=== PATIENT | female | born 1980 | race Caucasian/White ===

== ENCOUNTER 2016-05-16 18:25 | Emergency (ER) | payer MEDICAID ==
[~2016-05-16] VITALS: Ht 162.6 cm; Wt 52.0 kg
[~2016-05-16 18:25] MED LIST: IBUP-1542 PO; TYL500 PO
[2016-05-16 18:40] VITALS: Ht 162.6 cm; Wt 52.0 kg
[2016-05-16] MEDS ORDERED: HYDROCODONE/APAP (5/325) TAB PO ONE (20:30)
[2016-05-16] MEDS ORDERED: LIDOCAINE 1% (MDV) 20 ML INJ SC ONE (20:30)
--- NOTE | 2016-05-16 21:09 | ERD ---
ER Documentation Chief Complaint Date/Time DATE: 05/16/16 TIME: 21:03 Chief Complaint abscess right lower abdomen accu checheck 382 HPI This is a 35-year-old female who presents the emergency department today for an abscess on her right lower abdomen. States the abscess has been there for 2 days. Patient's states she does have a history of diabetes for which she does not take medication as she does not have a primary care doctor. Denies any fevers or chills. ROS All systems reviewed and are negative except as per history of present illness. Medications Home Meds Active Scripts Sulfamethoxazole-Trimethoprim* (Bactrim* DS) 800-160 Mg Tab, 1 TAB PO BID for 7 Days, TAB Prov:CARLOTA HAMILTON PA-C 05/16/16 Cephalexin* (Keflex*) 500 Mg Capsule, 500 MG PO QID for 7 Days, CAP Prov:CARLOTA HAMILTON PA-C 05/16/16 Ibuprofen* (Motrin*) 600 Mg Tab, 600 MG PO Q6, #30 TAB Prov:CARLOTA HAMILTON PA-C 05/16/16 Hydrocodone/Acetaminophen ([place] 5-325 Tablet) 1 Each Tablet, 1 TAB PO Q6H Y for PAIN, #15 TAB Prov:CARLOTA HAMILTON PA-C 05/16/16 Ibuprofen* (Ibuprofen*) 600 Mg Tablet, 600 MG PO Q6, #30 TAB Prov:CAROL ANN ALMENDAREZ PA-C 05/24/15 Acetaminophen* (Tylenol*) 500 Mg Tab, 500 MG PO Q4H Y for MILD PAIN LEVEL 1-3, # 14 TAB Prov:IBAN FONTAINE MD 05/24/15 Allergies Allergies: Coded Allergies: No Known Allergies (Verified Allergy, Mild, 08/11/13) PMhx/Soc Medical and Surgical Hx: pt denies Medical Hx, pt denies Surgical Hx History of Surgery: Yes ( x 4) Anesthesia Reaction: No Hx Neurological Disorder: No Hx Respiratory Disorders: No Hx Cardiac Disorders: No Hx Psychiatric Problems: No Hx Miscellaneous Medical Probl: Yes (Diabetes) Hx Alcohol Use: No Hx Substance Use: No Hx Tobacco Use: No Smoking Status: Never smoker Physical Exam Vitals Vital Signs Date Time Temp Pulse Resp B/P Pulse Ox O2 Delivery O2 Flow Rate FiO2 1/11/17 18:40 97.4 89 20 111/64 98 Physical Exam Const: No acute distress Head: Atraumatic Eyes: Normal Conjunctiva ENT: Normal External Ears, Nose and Mouth. Neck: Full range of motion..~ No meningismus. Resp: Clear to auscultation bilaterally Cardio: Regular rate and rhythm, no murmurs Abd: Soft, non tender, non distended. Normal bowel sounds Skin: 2 cm abscess right side of abdomen cluster headache. Localized erythema with evidence of mild drainage of pus. Full active range of motion of hip. Back: No midline or flank tenderness Ext: No cyanosis, or edema Neur: Awake and alert Psych: Normal Mood and Affect Results 24 hrs Current Medications Medications (Trade) Dose Ordered Sig/Osvaldo Route PRN Reason Start Time Stop Time Status Last Admin Dose Admin Lidocaine (Xylocaine 1% (Mdv) 20 ml) 20 ml ONCE ONCE SC 05/16/16 20:30 05/16/16 20:31 DC 05/16/16 20:33 Acetaminophen/ Hydrocodone Bitart ([place] (5/325)) 1 tab ONCE ONCE PO 05/16/16 20:30 05/16/16 20:31 DC 05/16/16 20:30 Procedures/MDM This 35-year-old female who presents to the emergency department today for an abscess on the right side of her abdomen caused her hip. Patient stated that was very painful. She has not taken any medication for the pain. On physical exam patient had a possibly to severe abscess with evidence of some purulent drainage or any draining. I did complain to the patient that it would be best to open up the abscess at this time. I explained the risks and benefits and patient agree to proceed. Area was prepped in the usual sterile fashion. Patient was given Austin prior to procedure. Patient tolerated the procedure well and there were no complications. Abscess Incision and Drainage with irrigation by me: Location: right side abdomen Anesthesia: [Local 1% Lidocaine] 2.5 mL Technique: [11 blade scalpel used to make a 1cm incision in the abscess. Irrigated. Disrupted loculations w/ instrumentation] Packin cm iodoform Complications: [Neurovascularly intact post procedure] Patient's skin symptoms have stabilized while they have been evaluated in the department and are appropriate for outpatient care and work up. Exam and w/u not consistent w/ sepsis, deep space infection, or foreign body. 48 hour wound check. Scar minimization instructions given. Patient will be given a prescription for [place], Motrin, Keflex and Bactrim. Patient had an Accu-Chek of 382 at intake. Patient denied any headache, dizziness, abdominal pain, nausea or vomiting. I do not feel the patient requires insulin or diabetes treatment at this time here in the acute setting. I have explained to the patient that she needs to follow up with primary care physician. She was given a list of resources. At this time the patient is stable for discharge and outpatient management. Patient should follow up with their PCP in the next 1-2 days. They may return to the emergency department sooner for any persistent or worsening of symptoms. Patient understood and agreed with the plan. I discussed the patient with Dr. Patel and she is in agreement with the plan. Departure Diagnosis: Primary Impression: Abscess Condition: Fair CARLOTA HAMILTON PA-C May 16, 2016 21:08
[2016-05-16] MEDS ORDERED: CEPH-443 PO (21:10)
[2016-05-16] MEDS ORDERED: BACTDS PO (21:10)
[2016-05-16] MEDS ORDERED: IBUP-1542 PO (21:10)
[2016-05-16] MEDS ORDERED: HYDR-906 PO (21:10)
[2016-05-16 21:24] VITALS: BP 113/70; PULSE 82; RESP 18; TEMP 98.3
== END 2016-05-16 21:25 | disposition home or self-care (01) ==
LOC: FTE 18:25
DX: L02.211 Cutaneous abscess of abdominal wall (principal); E11.9 Type 2 diabetes mellitus without complications
CPT/HCPCS: 10061; 82962; Z7502; Z7610

== ENCOUNTER 2016-05-18 18:30 | Emergency (ER) | payer MEDICAID ==
[~2016-05-18] VITALS: Ht 152.4 cm; Wt 52.5 kg
[~2016-05-18 18:30] MED LIST changes: +BACTDS PO; +CEPH-443 PO; +HYDR-906 PO
[2016-05-18 18:36] VITALS: Ht 152.4 cm; Wt 52.5 kg
[2016-05-18] MEDS ORDERED: DOXY100T20 PO (19:19)
[2016-05-18] MEDS ORDERED: LACT1CAP17 PO (19:20)
[2016-05-18] MEDS ORDERED: FLUC150T41 PO (19:20)
[2016-05-18] MEDS ORDERED: DOXYCYCLINE 100 MG TAB PO ONE (19:30)
--- NOTE | 2016-05-18 19:35 | ERD ---
ER Documentation Chief Complaint Date/Time DATE: 05/18/16 TIME: 19:21 Chief Complaint abscess on rlq on the abd, severe pain, afebrile HPI 35-year-old woman with a recent right inguinal abscess packed yesterday presents with wound reevaluation. She does have a history of diabetes mellitus although she states she is does not inject insulin. She suspects skin irritation to the right inguinal area occurred because of a tight fitting belt although she states upon further questioning she has had about 1 year of intermittent malodorous vaginal discharge. She states last sexual intercourse was 2 months ago with her , unprotected. She denies weight loss, no fevers or chills, no vomiting. She was prescribed cephalexin and trimethoprim/ sulfamethoxazole yesterday and has been using those antibiotics as prescribed. ROS All systems reviewed and are negative except as per history of present illness. Medications Home Meds Active Scripts Fluconazole* (Fluconazole*) 150 Mg Tablet, 150 MG PO ONCE, #1 TAB Prov:MEGAN TERRY MD 05/18/16 Lactobac Cmb #3/Fos/Pantethine (PROBIOTIC & ACIDOPHILUS CAP) 1 Each Capsule, 1 EACH PO DAILY, #30 CAP Prov:MEGAN TERRY MD 05/18/16 Doxycycline Hyclate* (Doxycycline Hyclate*) 100 Mg Tablet.dr, 100 MG PO BID for 14 Days, TAB Prov:MEGAN TERRY MD 05/18/16 Sulfamethoxazole-Trimethoprim* (Bactrim* DS) 800-160 Mg Tab, 1 TAB PO BID for 7 Days, TAB Prov:CARLOTA HAMILTON PA-C 05/16/16 Cephalexin* (Keflex*) 500 Mg Capsule, 500 MG PO QID for 7 Days, CAP Prov:CARLOTA HAMILTON PA-C 05/16/16 Ibuprofen* (Motrin*) 600 Mg Tab, 600 MG PO Q6, #30 TAB Prov:CARLOTA HAMILTON PA-C 05/16/16 Hydrocodone/Acetaminophen ([place] 5-325 Tablet) 1 Each Tablet, 1 TAB PO Q6H Y for PAIN, #15 TAB Prov:CARLOTA HAMILTON PA-C 05/16/16 Ibuprofen* (Ibuprofen*) 600 Mg Tablet, 600 MG PO Q6, #30 TAB Prov:CAROL ANN ALMENDAREZ PA-C 05/24/15 Acetaminophen* (Tylenol*) 500 Mg Tab, 500 MG PO Q4H Y for MILD PAIN LEVEL 1-3, # 14 TAB Prov:IBAN FONTAINE MD 05/24/15 Allergies Allergies: Coded Allergies: No Known Allergies (Verified Allergy, Mild, 08/11/13) PMhx/Soc Diabetes mellitus History of Surgery: Yes ( x 4) Anesthesia Reaction: No Hx Neurological Disorder: No Hx Respiratory Disorders: No Hx Cardiac Disorders: No Hx Psychiatric Problems: No Hx Miscellaneous Medical Probl: Yes (Diabetes) Hx Alcohol Use: No Hx Substance Use: No Hx Tobacco Use: No FmHx Family History: No diabetes Physical Exam Vitals Vital Signs Date Time Temp Pulse Resp B/P Pulse Ox O2 Delivery O2 Flow Rate FiO2 05/18/16 18:36 98.4 80 20 108/69 99 Physical Exam GENERAL: Well-developed, well-nourished, well-hydrated, in no apparent distress , looks nontoxic in appearance HEENT: Moist mucous membranes, pink conjunctiva, no cervical spine tenderness or step-off deformities, no goiter, no jaundice or icterus, extraocular movements intact without pain. No submandibular induration, and no pharyngeal erythema NEURO: Alert and oriented 3, cranial nerves II through XII intact bilaterally, pupils equal round reactive to light, no focal deficits or facial asymmetry, sensation intact distally Strength 5/5 in upper and lower extremities bilaterally CARDIAC: Regular rate and rhythm, no murmurs rubs or gallops LUNGS: Clear bilaterally no wheezing crackles or stridor ABDOMEN: Soft nontender, no guarding, no rigidity, no rebound, no psoas sign no obturator sign. Normoactive bowel sounds SKIN: Warm and dry to touch, 1 cm circular draining abscess to the right inguinal area without skin induration or erythema. No target lesions. EXTREMITIES: No clubbing cyanosis or edema, calves are bilaterally symmetrical, no Homans sign, no popliteal cord sign. Distal pulses equal and bilateral PSYCH: Normal affect without agitation or irritability Results 24 hrs Current Medications Medications (Trade) Dose Ordered Sig/Osvaldo Route PRN Reason Start Time Stop Time Status Last Admin Dose Admin Doxycycline Hyclate (Vibramycin) 100 mg ONCE ONCE PO 05/18/16 19:30 05/18/16 19:31 Procedures/MDM Packing from the inguinal abscess was removed. Site was clean and dry without signs of overlying cellulitis. Abdominal examination was benign. Infections to consider in the setting of inguinal abscesses include but are not limited to lymphogranuloma venereum, syphilis, pelvic inflammatory disease, and tubo-ovarian abscess. I administered a dose of doxycycline here in the ER and prescribed 2 weeks of doxycycline twice daily. My other strong recommendation was she follow-up with gynecology for thorough pelvic examination and cervical swab and testing for sexually transmitted infections. This can be performed as an outpatient as she has had vaginal discharge for about a year. Bacterial vaginitis may also cause this presentation and 2 weeks of doxycycline should treat this adequately. Differential diagnoses considered, included but not limited to tubo-ovarian abscess, chlamydia infection, syphilis, abdominal aortic aneurysm, sepsis, stroke, meningitis, encephalitis, pneumonia, appendicitis, cholecystitis, bowel obstruction, pyelonephritis, nephrolithiasis, cystitis, as well as metabolic, hematologic, and electrolyte abnormalities. As well as abscess, cellulitis, fractures, and dislocations. Patient feels much better at this time, and vital signs are normal, symptoms have improved. I did give strict instructions to return to the ED if symptoms continue or worsen, patient will otherwise follow-up with primary care physician. Patient understood instructions and agreed to plan. Departure Diagnosis: Primary Impression: Bacterial vaginitis Additional Impressions: Inguinal abscess Encounter for wound re-check Condition: Good Patient Instructions: What Are Sexually Transmitted Diseases (STDs)?, Vaginitis , Bacterial MEGAN TERRY MD May 18, 2016 19:34
[2016-05-18 19:54] VITALS: BP 99/65; PULSE 73; RESP 20; TEMP 97.8
== END 2016-05-18 19:54 | disposition home or self-care (01) ==
LOC: FTE 18:30
DX: N76.0 Acute vaginitis (principal); L02.214 Cutaneous abscess of groin; E11.9 Type 2 diabetes mellitus without complications
CPT/HCPCS: Z7502; Z7610; 99284

== ENCOUNTER 2017-03-10 17:56 | Emergency (ER) | payer MEDICAID ==
[~2017-03-10] VITALS: Wt 50.3 kg
[~2017-03-10 17:56] MED LIST changes: +DOXY100T20 PO; +FLUC150T41 PO; +LACT1CAP17 PO
--- NOTE | 2017-03-10 19:38 | RADRPT ---
PROCEDURE: XR Chest. CLINICAL INDICATION: Abdominal pain. TECHNIQUE: Single frontal view. COMPARISON: None. FINDINGS: The lungs are clear. The heart size is normal. There is no pleural effusion. There is no pneumothorax. IMPRESSION: 1. Normal chest radiograph. RPTAT: QQ .Matteo Mckeon MD, Date Time Electronically viewed and signed by .Matteo Mckeon MD, on 03/10/2017 19:38 .R/
[2017-03-10] MEDS ORDERED: CEPH-443 PO (20:09)
[2017-03-10] MEDS ORDERED: METF500T4 PO (20:09)
--- NOTE | 2017-03-10 20:14 | ERD ---
ER Documentation Chief Complaint Chief Complaint LEFT LOWER QUAD HPI Patient is a 36-year-old female who is diabetic complaining of chest pain for 3 days as well as left lower abdominal pain. She also has increased urinary frequency and dysuria but denies any hematuria. She states she is diabetic but does not take any medications because she does not have a primary care doctor. She has no cardiac past medical history. No fever. No nausea or vomiting or diarrhea. ROS All systems reviewed and are negative except as per history of present illness. Medications Home Meds Active Scripts Metformin* (Glucophage*) 500 Mg Tab, 500 MG PO DAILY, #30 TAB Prov:OLLIE DUNNE PA-C 03/10/17 Cephalexin* (Keflex*) 500 Mg Capsule, 500 MG PO BID for 5 Days, CAP Prov:OLLIE DUNNE PA-C 03/10/17 Fluconazole* (Fluconazole*) 150 Mg Tablet, 150 MG PO ONCE, #1 TAB Prov:MEGAN TERRY MD 05/18/16 Lactobac Cmb #3/Fos/Pantethine (PROBIOTIC & ACIDOPHILUS CAP) 1 Each Capsule, 1 EACH PO DAILY, #30 CAP Prov:MEGAN TERRY MD 05/18/16 Doxycycline Hyclate* (Doxycycline Hyclate*) 100 Mg Tablet.dr, 100 MG PO BID for 14 Days, TAB Prov:MEGAN TERRY MD 05/18/16 Sulfamethoxazole-Trimethoprim* (Bactrim* DS) 800-160 Mg Tab, 1 TAB PO BID for 7 Days, TAB Prov:CARLOTA HAMILTON PA-C 05/16/16 Cephalexin* (Keflex*) 500 Mg Capsule, 500 MG PO QID for 7 Days, CAP Prov:CARLOTA HAMILTON PA-C 05/16/16 Ibuprofen* (Motrin*) 600 Mg Tab, 600 MG PO Q6, #30 TAB Prov:CARLOTA HAMILTON PA-C 05/16/16 Hydrocodone/Acetaminophen ([place] 5-325 Tablet) 1 Each Tablet, 1 TAB PO Q6H Y for PAIN, #15 TAB Prov:CARLOTA HAMILTON PA-C 05/16/16 Ibuprofen* (Ibuprofen*) 600 Mg Tablet, 600 MG PO Q6, #30 TAB Prov:CAROL ANN ALMENDAREZ PA-C 05/24/15 Acetaminophen* (Tylenol*) 500 Mg Tab, 500 MG PO Q4H Y for MILD PAIN LEVEL 1-3, # 14 TAB Prov:IBAN FONTAINE MD 05/24/15 Allergies Allergies: Coded Allergies: No Known Allergies (Verified Allergy, Mild, 08/11/13) PMhx/Soc Medical and Surgical Hx: pt denies Medical Hx History of Surgery: Yes ( x 4) Anesthesia Reaction: No Hx Neurological Disorder: No Hx Respiratory Disorders: No Hx Cardiac Disorders: No Hx Psychiatric Problems: No Hx Miscellaneous Medical Probl: Yes (Diabetes) Hx Alcohol Use: No Hx Substance Use: No Hx Tobacco Use: No Smoking Status: Never smoker FmHx Family History: diabetes Physical Exam Vitals Vital Signs Date Time Temp Pulse Resp B/P Pulse Ox O2 Delivery O2 Flow Rate FiO2 03/10/17 18:06 98.7 87 18 134/74 99 Physical Exam INITIAL VITAL SIGNS: Reviewed by me GENERAL: Awake, alert and oriented x 4, well appearing, nontoxic, speaking in full sentences. No acute distress HEAD: Atraumatic NECK: Supple. No masses. Full range of motion. No meningismus. No midline tenderness. RESPIRATORY: Clear to auscultation bilaterally. Symmetric chest wall rise. No wheezing or rales. No accessory muscle use. CV: Regular rate and rhythm. No murmurs, rubs, or gallops. ABDOMEN: Soft, non-distended. Nontender. Negative [place]. Negative McBurneys point tenderness. No CVA tenderness bilaterally. No guarding. No rebound. : Deffered. Result Diagram: 03/10/17190003/10/171900 Results 24 hrs Laboratory Tests Test 03/10/17 19:01 03/10/17 19:24 White Blood Count 12.910^3/ul Red Blood Count 4.3510^6/ul Hemoglobin 12.2g/dl Hematocrit 35.2% Mean Corpuscular Volume 80.9fl Mean Corpuscular Hemoglobin 28.0pg Mean Corpuscular Hemoglobin Concent 34.7g/dl Red Cell Distribution Width 12.6% Platelet Count 30656^3/UL Mean Platelet Volume 11.1fl Neutrophils % 74.3% Lymphocytes % 18.1% Monocytes % 5.4% Eosinophils % 1.2% Basophils % 0.5% Nucleated Red Blood Cells % 0.0/100WBC Neutrophils # 9.610^3/ul Lymphocytes # 2.310^3/ul Monocytes # 0.710^3/ul Eosinophils # 0.210^3/ul Basophils # 0.110^3/ul Nucleated Red Blood Cells # 0.010^3/ul Sodium Level 137mmol/L Potassium Level 4.0mmol/L Chloride Level 101mmol/L Carbon Dioxide Level 25mmol/L Anion Gap 15 Blood Urea Nitrogen 12mg/dl Creatinine 0.51mg/dl Glucose Level 342mg/dl Calcium Level 9.1mg/dl Total Bilirubin 0.8mg/dl Direct Bilirubin 0.00mg/dl Indirect Bilirubin 0.8mg/dl Aspartate Amino Transf (AST/SGOT) 18IU/L Alanine Aminotransferase (ALT/SGPT) 27IU/L Alkaline Phosphatase 209IU/L Troponin I < 0.012ng/ml Total Protein 7.8g/dl Albumin 3.8g/dl Globulin 4.00g/dl Albumin/Globulin Ratio 0.95 Lipase 73U/L Urine Color YELLOW Urine Clarity CLOUDY Urine pH 6.0 Urine Specific [place] 1.023 Urine Ketones TRACEmg/dL Urine Nitrite POSITIVEmg/dL Urine Bilirubin NEGATIVEmg/dL Urine Urobilinogen NEGATIVEmg/dL Urine Leukocyte Esterase 2+Tawanna/ul Urine Microscopic RBC 6/HPF Urine Microscopic WBC 50/HPF Urine Squamous Epithelial Cells FEW/HPF Urine Bacteria FEW/HPF Urine Mucus FEW/HPF Urine Hemoglobin 1+mg/dL Urine Glucose 3+mg/dL Urine Total Protein NEGATIVEmg/dl Procedures/MDM 36-year-old female presents complaining of chest pain as well as abdominal pain. The differential diagnosis includes but is not limited to acute coronary syndrome acute myocardial infarction, pericarditis, pulmonary embolism, aortic dissection, pneumonia, pleural effusion, pneumothorax, GERD, chest wall pain, appendicitis, cholelithiasis, cholecystitis, pancreatitis, hepatitis, gastritis , peptic ulcer disease, bowel obstruction, diverticulitis, renal disease including stones, torsion, AAA, pyelonephritis, and others. Patients is alert , oriented, well appearing, and in no distress with normal vital signs. There is no fever, tachycardia, or tachypnea. Blood work reveals elevated blood sugar of 342 but there is no evidence of DKA. Chest x-ray negative. Urine is positive for urinary tract infection. She was given prescription for Keflex and I also started her on metformin and I gave her a list of low-cost clinics in the area and told her she is to follow-up for further management of her diabetes and explained to her is her responsibility to do this. Patient counseled regarding my diagnostic impression and care plan. Prior to discharge all questions answered. Pt agrees with treatment plan and understands strict return precautions. Pt is instructed to follow up with primary care provider within 24-48 hours. Precautionary instructions provided including instructions to return to the ER if not improving or for any worsening or changing symptoms or concerns. Departure Diagnosis: Primary Impression: Cystitis Additional Impression: Hyperglycemia Condition: Stable Patient Instructions: Hyperglycemia (High Blood Sugar), Cystitis [facility] Usted se lee hecho un examen mdico de control que le indica que no est en jacquie condicin que requiera tratamiento urgente en el Departamento de Emergencia. Un estudio ms profundo y el tratamiento de kilpatrick condicin pueden esperar sin ningn riesgo hasta que usted sea atendida/o en el consultorio de kilpatrick mdico o jacquie cl raghavendra. Es responsabilidad suya arreglar jacquie jong para el seguimiento del nicolle. MANEJO DE CONDICIONES NO URGENTES EN EL FUTURO 1) Si usted tiene un mdico de atencin primaria: Usted debera llamar a kilpatrick mdico de atencin primaria antes de venir al departamento de emergencia. Despus de las horas de consultorio, kilpatrick doctor o kilpatrick asociado/a est disponible por telfono. El mdico o enfermero de gissel en el servicio telefnico puede asesorarle por jabier medio para atender el problema, o nicolle contrario se puede programar jacquie jong. 2) Si usted no tiene un mdico de atencin primaria: Llame al mdico o clnica de referencia que aparece abajo ava las horas de consultorio para hacer jacquie jong para que le vean. CLINICAS: [facility] [phone] [facility] [phone] [facility] [phone] [place] [id number] [phone] [place] [address] [phone] [facility] [phone] [address] Additional Instructions: Llame al doctor MAANA y johann jacquie JONG PARA DENTRO DE 1-2 ELDRIDGE.Dgale a la secretaria que nosotros le instruimos hacer esta jong.Avise o llame si kilpatrick condicin se empeora antes de la jong. Regresa aqui si peor o no mejor. OLLIE DUNNE PA-C Mar 10, 2017 20:14
--- NOTE | 2017-03-10 20:14 | ERD ---
ER Documentation Chief Complaint Chief Complaint LEFT LOWER QUAD HPI Patient is a 36-year-old female who is diabetic complaining of chest pain for 3 days as well as left lower abdominal pain. She also has increased urinary frequency and dysuria but denies any hematuria. She states she is diabetic but does not take any medications because she does not have a primary care doctor. She has no cardiac past medical history. No fever. No nausea or vomiting or diarrhea. ROS All systems reviewed and are negative except as per history of present illness. Medications Home Meds Active Scripts Metformin* (Glucophage*) 500 Mg Tab, 500 MG PO DAILY, #30 TAB Prov:OLLIE DUNNE PA-C 03/10/17 Cephalexin* (Keflex*) 500 Mg Capsule, 500 MG PO BID for 5 Days, CAP Prov:OLLIE DUNNE PA-C 03/10/17 Fluconazole* (Fluconazole*) 150 Mg Tablet, 150 MG PO ONCE, #1 TAB Prov:MEGAN TERRY MD 05/18/16 Lactobac Cmb #3/Fos/Pantethine (PROBIOTIC & ACIDOPHILUS CAP) 1 Each Capsule, 1 EACH PO DAILY, #30 CAP Prov:MEGAN TERRY MD 05/18/16 Doxycycline Hyclate* (Doxycycline Hyclate*) 100 Mg Tablet.dr, 100 MG PO BID for 14 Days, TAB Prov:MEGAN TERRY MD 05/18/16 Sulfamethoxazole-Trimethoprim* (Bactrim* DS) 800-160 Mg Tab, 1 TAB PO BID for 7 Days, TAB Prov:CARLOTA HAMILTON PA-C 05/16/16 Cephalexin* (Keflex*) 500 Mg Capsule, 500 MG PO QID for 7 Days, CAP Prov:CARLOTA HAMILTON PA-C 05/16/16 Ibuprofen* (Motrin*) 600 Mg Tab, 600 MG PO Q6, #30 TAB Prov:CARLOTA HAMILTON PA-C 05/16/16 Hydrocodone/Acetaminophen ([place] 5-325 Tablet) 1 Each Tablet, 1 TAB PO Q6H Y for PAIN, #15 TAB Prov:CARLOTA HAMILTON PA-C 05/16/16 Ibuprofen* (Ibuprofen*) 600 Mg Tablet, 600 MG PO Q6, #30 TAB Prov:CAROL ANN ALMENDAREZ PA-C 05/24/15 Acetaminophen* (Tylenol*) 500 Mg Tab, 500 MG PO Q4H Y for MILD PAIN LEVEL 1-3, # 14 TAB Prov:IBAN FONTAINE MD 05/24/15 Allergies Allergies: Coded Allergies: No Known Allergies (Verified Allergy, Mild, 08/11/13) PMhx/Soc Medical and Surgical Hx: pt denies Medical Hx History of Surgery: Yes ( x 4) Anesthesia Reaction: No Hx Neurological Disorder: No Hx Respiratory Disorders: No Hx Cardiac Disorders: No Hx Psychiatric Problems: No Hx Miscellaneous Medical Probl: Yes (Diabetes) Hx Alcohol Use: No Hx Substance Use: No Hx Tobacco Use: No Smoking Status: Never smoker FmHx Family History: diabetes Physical Exam Vitals Vital Signs Date Time Temp Pulse Resp B/P Pulse Ox O2 Delivery O2 Flow Rate FiO2 03/10/17 18:06 98.7 87 18 134/74 99 Physical Exam INITIAL VITAL SIGNS: Reviewed by me GENERAL: Awake, alert and oriented x 4, well appearing, nontoxic, speaking in full sentences. No acute distress HEAD: Atraumatic NECK: Supple. No masses. Full range of motion. No meningismus. No midline tenderness. RESPIRATORY: Clear to auscultation bilaterally. Symmetric chest wall rise. No wheezing or rales. No accessory muscle use. CV: Regular rate and rhythm. No murmurs, rubs, or gallops. ABDOMEN: Soft, non-distended. Nontender. Negative [place]. Negative McBurneys point tenderness. No CVA tenderness bilaterally. No guarding. No rebound. : Deffered. Result Diagram: 03/10/17190003/10/171900 Results 24 hrs Laboratory Tests Test 03/10/17 19:01 03/10/17 19:24 White Blood Count 12.910^3/ul Red Blood Count 4.3510^6/ul Hemoglobin 12.2g/dl Hematocrit 35.2% Mean Corpuscular Volume 80.9fl Mean Corpuscular Hemoglobin 28.0pg Mean Corpuscular Hemoglobin Concent 34.7g/dl Red Cell Distribution Width 12.6% Platelet Count 03172^3/UL Mean Platelet Volume 11.1fl Neutrophils % 74.3% Lymphocytes % 18.1% Monocytes % 5.4% Eosinophils % 1.2% Basophils % 0.5% Nucleated Red Blood Cells % 0.0/100WBC Neutrophils # 9.610^3/ul Lymphocytes # 2.310^3/ul Monocytes # 0.710^3/ul Eosinophils # 0.210^3/ul Basophils # 0.110^3/ul Nucleated Red Blood Cells # 0.010^3/ul Sodium Level 137mmol/L Potassium Level 4.0mmol/L Chloride Level 101mmol/L Carbon Dioxide Level 25mmol/L Anion Gap 15 Blood Urea Nitrogen 12mg/dl Creatinine 0.51mg/dl Glucose Level 342mg/dl Calcium Level 9.1mg/dl Total Bilirubin 0.8mg/dl Direct Bilirubin 0.00mg/dl Indirect Bilirubin 0.8mg/dl Aspartate Amino Transf (AST/SGOT) 18IU/L Alanine Aminotransferase (ALT/SGPT) 27IU/L Alkaline Phosphatase 209IU/L Troponin I < 0.012ng/ml Total Protein 7.8g/dl Albumin 3.8g/dl Globulin 4.00g/dl Albumin/Globulin Ratio 0.95 Lipase 73U/L Urine Color YELLOW Urine Clarity CLOUDY Urine pH 6.0 Urine Specific [place] 1.023 Urine Ketones TRACEmg/dL Urine Nitrite POSITIVEmg/dL Urine Bilirubin NEGATIVEmg/dL Urine Urobilinogen NEGATIVEmg/dL Urine Leukocyte Esterase 2+Tawanna/ul Urine Microscopic RBC 6/HPF Urine Microscopic WBC 50/HPF Urine Squamous Epithelial Cells FEW/HPF Urine Bacteria FEW/HPF Urine Mucus FEW/HPF Urine Hemoglobin 1+mg/dL Urine Glucose 3+mg/dL Urine Total Protein NEGATIVEmg/dl Procedures/MDM 36-year-old female presents complaining of chest pain as well as abdominal pain. The differential diagnosis includes but is not limited to acute coronary syndrome acute myocardial infarction, pericarditis, pulmonary embolism, aortic dissection, pneumonia, pleural effusion, pneumothorax, GERD, chest wall pain, appendicitis, cholelithiasis, cholecystitis, pancreatitis, hepatitis, gastritis , peptic ulcer disease, bowel obstruction, diverticulitis, renal disease including stones, torsion, AAA, pyelonephritis, and others. Patients is alert , oriented, well appearing, and in no distress with normal vital signs. There is no fever, tachycardia, or tachypnea. Blood work reveals elevated blood sugar of 342 but there is no evidence of DKA. Chest x-ray negative. Urine is positive for urinary tract infection. She was given prescription for Keflex and I also started her on metformin and I gave her a list of low-cost clinics in the area and told her she is to follow-up for further management of her diabetes and explained to her is her responsibility to do this. Patient counseled regarding my diagnostic impression and care plan. Prior to discharge all questions answered. Pt agrees with treatment plan and understands strict return precautions. Pt is instructed to follow up with primary care provider within 24-48 hours. Precautionary instructions provided including instructions to return to the ER if not improving or for any worsening or changing symptoms or concerns. Departure Diagnosis: Primary Impression: Cystitis Additional Impression: Hyperglycemia Condition: Stable Patient Instructions: Hyperglycemia (High Blood Sugar), Cystitis [facility] Usted se lee hecho un examen mdico de control que le indica que no est en jacquie condicin que requiera tratamiento urgente en el Departamento de Emergencia. Un estudio ms profundo y el tratamiento de kilpatrick condicin pueden esperar sin ningn riesgo hasta que usted sea atendida/o en el consultorio de kilpatrick mdico o jacquie cl raghavendra. Es responsabilidad suya arreglar jacquie jong para el seguimiento del nicolle. MANEJO DE CONDICIONES NO URGENTES EN EL FUTURO 1) Si usted tiene un mdico de atencin primaria: Usted debera llamar a kilpatrick mdico de atencin primaria antes de venir al departamento de emergencia. Despus de las horas de consultorio, kilpatrick doctor o kilpatrick asociado/a est disponible por telfono. El mdico o enfermero de gissel en el servicio telefnico puede asesorarle por jabier medio para atender el problema, o nicolle contrario se puede programar jacquie jong. 2) Si usted no tiene un mdico de atencin primaria: Llame al mdico o clnica de referencia que aparece abajo ava las horas de consultorio para hacer jacquie jong para que le vean. CLINICAS: [facility] [phone] [facility] [phone] [facility] [phone] [place] [id number] [phone] [place] [address] [phone] [facility] [phone] [address] Additional Instructions: Llame al doctor MAANA y johann jacquie JONG PARA DENTRO DE 1-2 ELDRIDGE.Dgale a la secretaria que nosotros le instruimos hacer esta jong.Avise o llame si kilpatrick condicin se empeora antes de la jong. Regresa aqui si peor o no mejor. OLLIE DUNNE PA-C Mar 10, 2017 20:14
--- NOTE | 2017-03-10 20:14 | ERD ---
ER Documentation Chief Complaint Chief Complaint LEFT LOWER QUAD HPI Patient is a 36-year-old female who is diabetic complaining of chest pain for 3 days as well as left lower abdominal pain. She also has increased urinary frequency and dysuria but denies any hematuria. She states she is diabetic but does not take any medications because she does not have a primary care doctor. She has no cardiac past medical history. No fever. No nausea or vomiting or diarrhea. ROS All systems reviewed and are negative except as per history of present illness. Medications Home Meds Active Scripts Metformin* (Glucophage*) 500 Mg Tab, 500 MG PO DAILY, #30 TAB Prov:OLLIE DUNNE PA-C 03/10/17 Cephalexin* (Keflex*) 500 Mg Capsule, 500 MG PO BID for 5 Days, CAP Prov:OLLIE DUNNE PA-C 03/10/17 Fluconazole* (Fluconazole*) 150 Mg Tablet, 150 MG PO ONCE, #1 TAB Prov:MEGAN TERRY MD 05/18/16 Lactobac Cmb #3/Fos/Pantethine (PROBIOTIC & ACIDOPHILUS CAP) 1 Each Capsule, 1 EACH PO DAILY, #30 CAP Prov:MEGAN TERRY MD 05/18/16 Doxycycline Hyclate* (Doxycycline Hyclate*) 100 Mg Tablet.dr, 100 MG PO BID for 14 Days, TAB Prov:MEGAN TERRY MD 05/18/16 Sulfamethoxazole-Trimethoprim* (Bactrim* DS) 800-160 Mg Tab, 1 TAB PO BID for 7 Days, TAB Prov:CARLOTA HAMILTON PA-C 05/16/16 Cephalexin* (Keflex*) 500 Mg Capsule, 500 MG PO QID for 7 Days, CAP Prov:CARLOTA HAMILTON PA-C 05/16/16 Ibuprofen* (Motrin*) 600 Mg Tab, 600 MG PO Q6, #30 TAB Prov:CARLOTA HAMILTON PA-C 05/16/16 Hydrocodone/Acetaminophen ([place] 5-325 Tablet) 1 Each Tablet, 1 TAB PO Q6H Y for PAIN, #15 TAB Prov:CARLOTA HAMILTON PA-C 05/16/16 Ibuprofen* (Ibuprofen*) 600 Mg Tablet, 600 MG PO Q6, #30 TAB Prov:CAROL ANN ALMENDAREZ PA-C 05/24/15 Acetaminophen* (Tylenol*) 500 Mg Tab, 500 MG PO Q4H Y for MILD PAIN LEVEL 1-3, # 14 TAB Prov:IBAN FONTAINE MD 05/24/15 Allergies Allergies: Coded Allergies: No Known Allergies (Verified Allergy, Mild, 08/11/13) PMhx/Soc Medical and Surgical Hx: pt denies Medical Hx History of Surgery: Yes ( x 4) Anesthesia Reaction: No Hx Neurological Disorder: No Hx Respiratory Disorders: No Hx Cardiac Disorders: No Hx Psychiatric Problems: No Hx Miscellaneous Medical Probl: Yes (Diabetes) Hx Alcohol Use: No Hx Substance Use: No Hx Tobacco Use: No Smoking Status: Never smoker FmHx Family History: diabetes Physical Exam Vitals Vital Signs Date Time Temp Pulse Resp B/P Pulse Ox O2 Delivery O2 Flow Rate FiO2 03/10/17 18:06 98.7 87 18 134/74 99 Physical Exam INITIAL VITAL SIGNS: Reviewed by me GENERAL: Awake, alert and oriented x 4, well appearing, nontoxic, speaking in full sentences. No acute distress HEAD: Atraumatic NECK: Supple. No masses. Full range of motion. No meningismus. No midline tenderness. RESPIRATORY: Clear to auscultation bilaterally. Symmetric chest wall rise. No wheezing or rales. No accessory muscle use. CV: Regular rate and rhythm. No murmurs, rubs, or gallops. ABDOMEN: Soft, non-distended. Nontender. Negative [place]. Negative McBurneys point tenderness. No CVA tenderness bilaterally. No guarding. No rebound. : Deffered. Result Diagram: 03/10/17190003/10/171900 Results 24 hrs Laboratory Tests Test 03/10/17 19:01 03/10/17 19:24 White Blood Count 12.910^3/ul Red Blood Count 4.3510^6/ul Hemoglobin 12.2g/dl Hematocrit 35.2% Mean Corpuscular Volume 80.9fl Mean Corpuscular Hemoglobin 28.0pg Mean Corpuscular Hemoglobin Concent 34.7g/dl Red Cell Distribution Width 12.6% Platelet Count 41916^3/UL Mean Platelet Volume 11.1fl Neutrophils % 74.3% Lymphocytes % 18.1% Monocytes % 5.4% Eosinophils % 1.2% Basophils % 0.5% Nucleated Red Blood Cells % 0.0/100WBC Neutrophils # 9.610^3/ul Lymphocytes # 2.310^3/ul Monocytes # 0.710^3/ul Eosinophils # 0.210^3/ul Basophils # 0.110^3/ul Nucleated Red Blood Cells # 0.010^3/ul Sodium Level 137mmol/L Potassium Level 4.0mmol/L Chloride Level 101mmol/L Carbon Dioxide Level 25mmol/L Anion Gap 15 Blood Urea Nitrogen 12mg/dl Creatinine 0.51mg/dl Glucose Level 342mg/dl Calcium Level 9.1mg/dl Total Bilirubin 0.8mg/dl Direct Bilirubin 0.00mg/dl Indirect Bilirubin 0.8mg/dl Aspartate Amino Transf (AST/SGOT) 18IU/L Alanine Aminotransferase (ALT/SGPT) 27IU/L Alkaline Phosphatase 209IU/L Troponin I < 0.012ng/ml Total Protein 7.8g/dl Albumin 3.8g/dl Globulin 4.00g/dl Albumin/Globulin Ratio 0.95 Lipase 73U/L Urine Color YELLOW Urine Clarity CLOUDY Urine pH 6.0 Urine Specific [place] 1.023 Urine Ketones TRACEmg/dL Urine Nitrite POSITIVEmg/dL Urine Bilirubin NEGATIVEmg/dL Urine Urobilinogen NEGATIVEmg/dL Urine Leukocyte Esterase 2+Tawanna/ul Urine Microscopic RBC 6/HPF Urine Microscopic WBC 50/HPF Urine Squamous Epithelial Cells FEW/HPF Urine Bacteria FEW/HPF Urine Mucus FEW/HPF Urine Hemoglobin 1+mg/dL Urine Glucose 3+mg/dL Urine Total Protein NEGATIVEmg/dl Procedures/MDM 36-year-old female presents complaining of chest pain as well as abdominal pain. The differential diagnosis includes but is not limited to acute coronary syndrome acute myocardial infarction, pericarditis, pulmonary embolism, aortic dissection, pneumonia, pleural effusion, pneumothorax, GERD, chest wall pain, appendicitis, cholelithiasis, cholecystitis, pancreatitis, hepatitis, gastritis , peptic ulcer disease, bowel obstruction, diverticulitis, renal disease including stones, torsion, AAA, pyelonephritis, and others. Patients is alert , oriented, well appearing, and in no distress with normal vital signs. There is no fever, tachycardia, or tachypnea. Blood work reveals elevated blood sugar of 342 but there is no evidence of DKA. Chest x-ray negative. Urine is positive for urinary tract infection. She was given prescription for Keflex and I also started her on metformin and I gave her a list of low-cost clinics in the area and told her she is to follow-up for further management of her diabetes and explained to her is her responsibility to do this. Patient counseled regarding my diagnostic impression and care plan. Prior to discharge all questions answered. Pt agrees with treatment plan and understands strict return precautions. Pt is instructed to follow up with primary care provider within 24-48 hours. Precautionary instructions provided including instructions to return to the ER if not improving or for any worsening or changing symptoms or concerns. Departure Diagnosis: Primary Impression: Cystitis Additional Impression: Hyperglycemia Condition: Stable Patient Instructions: Hyperglycemia (High Blood Sugar), Cystitis [facility] Usted se lee hecho un examen mdico de control que le indica que no est en jacquie condicin que requiera tratamiento urgente en el Departamento de Emergencia. Un estudio ms profundo y el tratamiento de kilpatrick condicin pueden esperar sin ningn riesgo hasta que usted sea atendida/o en el consultorio de kilpatrick mdico o jacquie cl raghavendra. Es responsabilidad suya arreglar jacquie jong para el seguimiento del nicolle. MANEJO DE CONDICIONES NO URGENTES EN EL FUTURO 1) Si usted tiene un mdico de atencin primaria: Usted debera llamar a kilpatrick mdico de atencin primaria antes de venir al departamento de emergencia. Despus de las horas de consultorio, kilpatrick doctor o kilpatrick asociado/a est disponible por telfono. El mdico o enfermero de gissel en el servicio telefnico puede asesorarle por jabier medio para atender el problema, o nicolle contrario se puede programar jacquie jong. 2) Si usted no tiene un mdico de atencin primaria: Llame al mdico o clnica de referencia que aparece abajo ava las horas de consultorio para hacer jacquie jong para que le vean. CLINICAS: [facility] [phone] [facility] [phone] [facility] [phone] [place] [id number] [phone] [place] [address] [phone] [facility] [phone] [address] Additional Instructions: Llame al doctor MAANA y johann jacquie JONG PARA DENTRO DE 1-2 ELDR[place]GE.Dgale a la secretaria que nosotros le instruimos hacer esta jong.Avise o llame si kilpatrick condicin se empeora antes de la jong. Regresa aqui si peor o no mejor. OLLIE DUNNE PA-C Mar 10, 2017 20:14
== END 2017-03-10 20:25 | disposition home or self-care (01) ==
LOC: FTE 17:56
DX: N30.90 Cystitis, unspecified without hematuria (principal); E11.65 Type 2 diabetes mellitus with hyperglycemia
CPT/HCPCS: 36415; 71010; 80053; 81001; 83690; 84484; 85025; 93005; Z7502